=== PATIENT | male | born 1980 | race Caucasian/White ===

== ENCOUNTER 2020-12-31 11:40 | Emergency (ER) | payer BC ==
[~2020-12-31] VITALS: Ht 180.3 cm; Wt 80.3 kg
[~2020-12-31 11:40] MED LIST: ACTEMRA162 MG/0.9 SQ; CLINDAMYCIN HC300 MG PO; ELIQUIS 5 MG TAB5 MG PO; ETODOLAC400 MG PO; FLOMAX0.4 MG PO; FOLIC ACID 1 MG1 MG PO; LYRICA150 MG PO; PERCOCET 10-321 EACH PO; PREDNISONE 20 M20 MG PO; PRINIVIL20 MG PO; PROVENTIL HFA6.7 GM INH; TORADOL 10 MG T10 MG PO; TRAZODONE HCL150 MG PO; ULTRAM50 MG PO
== END 2020-12-31 14:44 | disposition home or self-care (01) ==
LOC: ER1 11:40
DX: U07.1 COVID-19 (principal); E78.5 Hyperlipidemia, unspecified; M06.9 Rheumatoid arthritis, unspecified; I10 Essential (primary) hypertension; Z79.899 Other long term (current) drug therapy; F17.290 Nicotine dependence, other tobacco product, uncomplicated
CPT/HCPCS: 99283

== ENCOUNTER → 2021-06-06 | Outpatient (CLI) | payer BC | LOC: KOH-I 13:42 | DX: M54.2 Cervicalgia (principal); M54.6 Pain in thoracic spine; M54.50 Low back pain, unspecified; M25.522 Pain in left elbow; M47.814 Spondylosis without myelopathy or radiculopathy, thoracic region; M47.816 Spondylosis without myelopathy or radiculopathy, lumbar region | CPT/HCPCS: 72050; 72070; 72110; 73080 ==

== ENCOUNTER → 2022-01-30 | Outpatient (CLI) | payer BC | LOC: KOH-I 11:27 | DX: D68.51 Activated protein C resistance (principal); R60.9 Edema, unspecified; M79.606 Pain in leg, unspecified | CPT/HCPCS: 93971 ==